=== PATIENT | male | born 1970 | race Caucasian/White ===

== ENCOUNTER → 2024-10-06 07:56 | Outpatient (REF) | payer OTHER, SELFPAY | LOC: RAD 07:56 | PROVIDERS: ATTENDING PHYSICIAN Internal Medicine Rheumatology; FAMILY PHYSICIAN Family Medicine | DX: M25.50 Pain in unspecified joint (principal); Z15.89 Genetic susceptibility to other disease; M79.641 Pain in right hand; M79.642 Pain in left hand | CPT/HCPCS: 72100; 72170; 73130 ==